=== PATIENT | female | born 1985 | race Native Hawaiian/Other Pacific Islander ===

== ENCOUNTER 2019-01-20 15:16 | Outpatient (CLI) | payer BC | END 2019-01-20 19:22 | disposition home or self-care (01) | LOC: RAD 15:16 | DX: M72.2 Plantar fascial fibromatosis (principal) ==

== ENCOUNTER 2020-09-06 17:04 | Observation (INO) | payer BC ==
[~2020-09-06] VITALS: Ht 162.6 cm; Wt 187.8 kg
[2020-09-06 18:12] VITALS: BP 110/68; TEMP 98.2; Ht 162.6 cm; Wt 187.8 kg
[2020-09-06] MEDS ORDERED: METF500T PO (18:19)
[2020-09-06] MEDS ORDERED: LISITAB PO (18:20)
[2020-09-06] MEDS ORDERED: [UNRECOGNIZED DRUG - OTHER] PO (18:24)
[2020-09-06] MEDS ORDERED: WOMENS DAILY PO (18:25)
[2020-09-06] MEDS ORDERED: ALLO300T23 PO (18:25)
[2020-09-06] MEDS ORDERED: MECLIZINE25 MG PO (18:26)
[2020-09-06] MEDS ORDERED: ASPIRIN ADULT L81 M1 PO (18:26)
[2020-09-06] MEDS ORDERED: OMEPRAZOLE20 M2 PO (18:27)
[2020-09-06 18:56] LABS: PLATELET COUNT 219 K/uL (152-353)
[2020-09-06 19:14] LABS: POTASSIUM 4.3 mmol/L (3.6-5.2); SODIUM 141 mmol/L (136-145)
[2020-09-06 20:00] VITALS: BP 112/72; TEMP 98.8
[2020-09-06 23:37] VITALS: BP 102/64; TEMP 98.9
[2020-09-07 04:00] VITALS: BP 98/61; TEMP 98.3
[2020-09-07 05:53] LABS: PLATELET COUNT 199 K/uL (152-353)
[2020-09-07 06:00] LABS: POTASSIUM 4.2 mmol/L (3.6-5.2)
[2020-09-07 08:00] VITALS: BP 103/70; TEMP 98
[2020-09-07 12:00] VITALS: BP 106/53; TEMP 98.1
[2020-09-07 16:00] VITALS: BP 114/65; TEMP 97.6
== END 2020-09-07 18:50 | disposition home or self-care (01) ==
LOC: MED/SURG 17:04
PROVIDERS: ADMIT Family Medicine; ATTEND Family Medicine
DX: E86.0 Dehydration (principal)
CPT/HCPCS: 36415; 80053; 81000; 82150; 82550; 83690; 84484; 85027; 87040; 96365; 96366; 96367; 99220; G0378; G0379; J2405; J3490

== ENCOUNTER 2021-09-05 09:37 | Outpatient (CLI) | payer BC, OTHER ==
[~2021-09-05 09:37] MED LIST: ALLO300T23 PO; ASPIRIN ADULT L81 M1 PO; LISITAB PO; MECLIZINE25 MG PO; METF500T PO; OMEPRAZOLE20 M2 PO; WOMENS DAILY PO; [UNRECOGNIZED DRUG - OTHER] PO
== END 2021-09-05 19:08 | disposition home or self-care (01) ==
LOC: RAD 09:37
PROVIDERS: ATTEND Nurse Practitioner Family
DX: Z20.822 Contact with and (suspected) exposure to COVID-19 (principal)